=== PATIENT | female | born 1950 | race Caucasian/White ===

== ENCOUNTER 2020-09-06 12:32 | Outpatient (REF) | payer MEDICARE, OTHER, SELFPAY ==
--- NOTE | 2020-09-06 | MM_ITS ---
EXAMINATION: MM SCREENING DIGITAL BREAST TOMOSYNTHESIS, RIGHT CLINICAL INFORMATION: Screening. Asymptomatic. Status post left mastectomy COMPARISON: Mammography: May 09, 2019 and studies dating back to August 06, 2012 TECHNIQUE: Digital breast tomosynthesis is performed in both the craniocaudal and mediolateral oblique views along with computer-aided detection (CAD). Synthesized 2D images are generated from the tomosynthesis. Exaggerated craniocaudal views also performed. FINDINGS: There are scattered areas of fibroglandular density (ACR BI-RADS breast composition Category b). There are no significant masses, abnormal calcifications, or other abnormalities. Right-sided port catheter noted. MM/MM tomosynthesis screening RT IMPRESSION: There are no significant changes from prior study. ASSESSMENT: BI-RADS 1: Negative RECOMMENDATION: Routine annual mammography screening. This patient's information was entered into a reminder system with a target due date for their next mammogram.
== END 2020-09-06 12:33 | disposition home or self-care (01) ==
LOC: HO.MAMMO 12:32
PROVIDERS: PCP Internal Medicine; Visit Provider Internal Medicine
DX: Z12.31 Encounter for screening mammogram for malignant neoplasm of breast (principal); Z90.710 Acquired absence of both cervix and uterus
CPT/HCPCS: 77067

== ENCOUNTER 2021-07-01 16:37 | Outpatient (REF) | payer MEDICARE, OTHER, SELFPAY ==
[2021-07-01 17:03] LABS: IDNOW Serial# 08D9AD1C; Strep A Nucleic Acid Negative (Negative)
[2021-07-01 18:16] LABS: Influenza A PCR NEGATIVE (Negative); Influenza B PCR NEGATIVE (Negative); Resp Syncy Virus RNA Qual PCR NEGATIVE (Negative); SARS COV2 PCR INHOUSE NEGATIVE (Negative)
== END 2021-07-01 16:38 | disposition home or self-care (01) ==
LOC: HO.LNP 16:37
PROVIDERS: Visit Provider Internal Medicine
DX: R43.9 Unspecified disturbances of smell and taste (principal); J06.9 Acute upper respiratory infection, unspecified; Z20.822 Contact with and (suspected) exposure to COVID-19
CPT/HCPCS: 0241U; 87651

== ENCOUNTER 2021-09-09 13:20 | Outpatient (REF) | payer MEDICARE, SELFPAY ==
--- NOTE | ~2021-09-09 | MM_ITS ---
EXAMINATION: MM SCREENING DIGITAL BREAST TOMOSYNTHESIS, RIGHT CLINICAL INFORMATION: Left mastectomy for breast cancer, 1998. Due for yearly. COMPARISON: Mammography: 09/06/2020, 05/09/2019, 04/30/2018 TECHNIQUE: Digital breast tomosynthesis is performed in both the craniocaudal and mediolateral oblique views along with computer-aided detection (CAD). Synthesized 2D images are generated from the tomosynthesis. FINDINGS: There are scattered areas of fibroglandular density (ACR BI-RADS breast composition Category b). There is fine fibronodular parenchymal pattern. No interval dominant mass or architectural abnormality or abnormal calcifications. A port is seen overlying the lower right axilla. The skin contours are smooth. MM/MM tomosynthesis screening RT IMPRESSION: No significant changes from prior exam. ASSESSMENT: BI-RADS 2: Benign RECOMMENDATION: Routine annual mammography screening. This patient's information was entered into a reminder system with a target due date for their next mammogram.
== END 2021-09-09 13:21 | disposition home or self-care (01) ==
LOC: HO.MAMMO 13:20
PROVIDERS: Visit Provider Internal Medicine
DX: Z12.31 Encounter for screening mammogram for malignant neoplasm of breast (principal)
CPT/HCPCS: 77063; 77067

== ENCOUNTER 2022-09-15 14:31 | Outpatient (REF) | payer MEDICARE, SELFPAY ==
--- NOTE | ~2022-09-15 | MM_ITS ---
EXAMINATION: MM SCREENING DIGITAL BREAST TOMOSYNTHESIS, RIGHT CLINICAL INFORMATION: Remote left mastectomy, 1998. Due for yearly exam. COMPARISON: Mammography: 09/09/2021, 09/06/2020, 05/09/2019, 04/30/2018 TECHNIQUE: Digital breast tomosynthesis is performed in both the craniocaudal and mediolateral oblique views along with computer-aided detection (CAD). Synthesized 2D images are generated from the tomosynthesis. FINDINGS: There are scattered areas of fibroglandular density (ACR BI-RADS breast composition Category b). Fine fibronodular parenchymal pattern is similar to prior study. There is no developing density or interval architectural abnormality or abnormal calcifications. The skin contours are smooth. There is a port overlying the lower posterior right axilla on MLO view. There are no significant changes. MM/MM tomosynthesis screening RT IMPRESSION: No mammographic evidence of malignancy. ASSESSMENT: BI-RADS 2: Benign RECOMMENDATION: Routine annual mammography screening. This patient's information was entered into a reminder system with a target due date for their next mammogram.
== END 2022-09-15 14:32 | disposition home or self-care (01) ==
LOC: HO.MAMMO 14:31
PROVIDERS: PCP Internal Medicine; Visit Provider Internal Medicine
DX: Z12.31 Encounter for screening mammogram for malignant neoplasm of breast (principal)
CPT/HCPCS: 77063; 77067

== ENCOUNTER 2023-06-29 09:16 | Day surgery (SDC) | payer MEDICARE, SELFPAY ==
[2023-06-25 09:26] VITALS: BMI 33.1
--- NOTE | 2023-06-26 07:54 | MHC.SHP ---
Pre-Procedural Eval Section A Date of Service: 06/26/23 The patient is an INPATIENT: No Changes since office visit: No Cold of Flu in the past 2 weeks, No New Medical Problems, No Changes in Medication and No Patient answered all questions The History & Physical has been completed within 30 days and I have reviewed it.: Yes Section B Chief Complaint: Age-related nuclear cataract, left eye Allergies: Allergies Allergy/AdvReac Type Severity Reaction Status Date / Time Penicillins AdvReac stomach Verified 07/01/21 13:11 ache Plan Diagnosis/Plan: Unchanged I have reviewed the history and physical and performed a pertinent physical examination on my patient. No changes have occurred unless specified. Time Spent With Patient Time: Total time managing care of this patient today ____ minutes.
--- NOTE | 2023-06-26 10:56 | HO.ANESPROP2 ---
Documented by User: Arlene Schultz NP 06/26/23 10:57 HPI - Anesthesia Eval Consult details Narrative: 73yo F for Left Cataract Extraction IOL Insertion PCP cleared No previous cataract on record O2 dependant prn PMFSH Active Problems Active Problems: All Active Problems (Updated 06/25/23 @ 09:14 by Jagruti Hays RN) Upper respiratory tract infection (Acute) Past Medical History Medical History Hx of cancer of lung Back pain Anemia History of home oxygen therapy COPD (chronic obstructive pulmonary disease) Dyslipidemia Multinodular goiter Breast cancer Tobacco use Osteopenia Cervical high risk HPV (human papillomavirus) test positive Vitamin D deficiency Skin cancer Malignant neoplasm of lung CKD (chronic kidney disease) COVID-19 HTN (hypertension) Surgical History Surgical History History of lobectomy of lung History of removal of ovarian cyst History of bronchoscopy Hx of left mastectomy Social History Social History Housing Other:: mobile home Are you a primary laboratory animal care veterinarian to a significant other at home: No Do you presently have visiting nurse or other home services: Yes (visiting nurse) Patient Tobacco Use Status: Former Tobacco user Quit Date: 06/2019 Tobacco use type: Cigarette Years Smoked: 54 Smoked in Last 30 Days: No Use of substances other than those prescribed or required for medical reasons: Yes Substance Use Type Other:: edibles at bedtime Substance Use Frequency: Daily Have you been hit, kicked, punched, or otherwise hurt by someone within the past year? If so, by whom?: No Are you DNR?: No Advance Directives: No Advance Directives Information Provided: Yes Advance Directives on File: No Recently lost weight without trying: No Eating poorly because of decreased appetite: No Nutrition Risks: No Nutritional Risk Patient : No : No Poor oral hygiene: Yes (full dentures upper and lower) Meds Allergies Allergy/AdvReac Type Severity Reaction Status Date / Time Penicillins AdvReac stomach Verified 07/01/21 13:11 ache Home Medications Medication Instructions Recorded Confirmed Last Taken Type gabapentin 300 mg capsule 300 mg PO DAILY 07/01/21 06/25/23 Unknown History atorvastatin 40 mg tablet 40 mg PO BEDTIME 06/24/23 06/25/23 Unknown History cetirizine 10 mg tablet 10 mg PO DAILY 06/24/23 06/25/23 06/29/23 History cholecalciferol (vitamin D3) 25 25 mcg PO DAILY 06/24/23 06/25/23 Unknown History mcg (1,000 unit) tablet cyanocobalamin (vitamin B-12) 50 50 mcg PO DAILY 06/24/23 06/25/23 Unknown History mcg tablet (Vitamin B-12) furosemide 20 mg tablet 20 mg PO QAM 06/24/23 06/25/23 Unknown History ipratropium 20 mcg-albuterol 100 1 puff inhalation TID 06/24/23 06/25/23 06/29/23 09:58 History mcg/actuation mist for inhalation (Combivent Respimat) melatonin 5 mg capsule 5 mg PO BEDTIME 06/24/23 06/25/23 Unknown History metoprolol tartrate 50 mg tablet 50 mg PO BID 06/24/23 06/25/23 06/29/23 History omeprazole 20 mg capsule,delayed 20 mg PO BEDTIME 06/24/23 06/25/23 Unknown History release gabapentin 300 mg capsule 600 mg PO BEDTIME 06/25/23 06/25/23 06/29/23 History Exam Exam Date and Time: June 26, 2023 1056 Height,Weight and Vital Signs: Height 5 ft 1 in Weight 79.379 kg Assessment and Plan Assessment Anesthesia Assessment: Chart Reviewed Documented by User: Avtar Bryan MD 06/29/23 10:53 [facility] Past Medical History Medical History Hx of cancer of lung Back pain Anemia History of home oxygen therapy COPD (chronic obstructive pulmonary disease) Dyslipidemia Multinodular goiter Breast cancer Tobacco use Osteopenia Cervical high risk HPV (human papillomavirus) test positive Vitamin D deficiency Skin cancer Malignant neoplasm of lung CKD (chronic kidney disease) COVID-19 HTN (hypertension) Family History Family history of problems with anesthesia: No Surgical History Surgical History History of lobectomy of lung History of removal of ovarian cyst History of bronchoscopy Hx of left mastectomy History of Problems with Anesthesia: No Social History Social History Housing Other:: mobile home Are you a primary laboratory animal care veterinarian to a significant other at home: No Do you presently have visiting nurse or other home services: Yes (visiting nurse) Patient Tobacco Use Status: Former Tobacco user Quit Date: 06/2019 Tobacco use type: Cigarette Years Smoked: 54 Smoked in Last 30 Days: No Use of substances other than those prescribed or required for medical reasons: Yes Substance Use Type Other:: edibles at bedtime Substance Use Frequency: Daily Have you been hit, kicked, punched, or otherwise hurt by someone within the past year? If so, by whom?: No Are you DNR?: No Advance Directives: No Advance Directives Information Provided: Yes Advance Directives on File: No Recently lost weight without trying: No Eating poorly because of decreased appetite: No Nutrition Risks: No Nutritional Risk Patient : No : No Poor oral hygiene: Yes (full dentures upper and lower) Meds Allergies Allergy/AdvReac Type Severity Reaction Status Date / Time Penicillins AdvReac stomach Verified 07/01/21 13:11 ache Home Medications Medication Instructions Recorded Confirmed Last Taken Type gabapentin 300 mg capsule 300 mg PO DAILY 07/01/21 06/25/23 Unknown History atorvastatin 40 mg tablet 40 mg PO BEDTIME 06/24/23 06/25/23 Unknown History cetirizine 10 mg tablet 10 mg PO DAILY 06/24/23 06/25/23 06/29/23 History cholecalciferol (vitamin D3) 25 25 mcg PO DAILY 06/24/23 06/25/23 Unknown History mcg (1,000 unit) tablet cyanocobalamin (vitamin B-12) 50 50 mcg PO DAILY 06/24/23 06/25/23 Unknown History mcg tablet (Vitamin B-12) furosemide 20 mg tablet 20 mg PO QAM 06/24/23 06/25/23 Unknown History ipratropium 20 mcg-albuterol 100 1 puff inhalation TID 06/24/23 06/25/2323 09:58 History mcg/actuation mist for inhalation (Combivent Respimat) melatonin 5 mg capsule 5 mg PO BEDTIME 06/24/23 06/25/23 Unknown History metoprolol tartrate 50 mg tablet 50 mg PO BID 06/24/23 06/25/23 06/29/23 History omeprazole 20 mg capsule,delayed 20 mg PO BEDTIME 06/24/23 06/25/23 Unknown History release gabapentin 300 mg capsule 600 mg PO BEDTIME 06/25/23 06/25/23 06/29/23 History Exam Airway Mallampati Class: II TM Dist: >3cm Neck ROM: Full Denture: Upper and Lower Loose/Missing/Broken Teeth: Yes Heart: [id number] Lungs: cta b/l Assessment and Plan Assessment Anesthesia Assessment: Anesthesia Plan Discussed Final Anesthetic Review Family History of Problems with Anesthesia: No History of Problems with Anesthesia: No NPO: Yes ASA Class: III Final Preanesthetic Review: No Changes in Pt Med Stat, Meds/Allgs Chart Reviewed, Consent Obtained/Reviewed and Anes Risks/Benef Reviewed Patient Risk: Intermediate Procedure Risk: Intermediate Assessment/Block/Sedation in SS: Assess/Block/Sedation-SS Anesthetic Plan Anesthetic Plan: MAC: and Agree w/ Assess. and Plan Disposition: Standard PACU
--- NOTE | 2023-06-29 09:54 | PC.NURSE ---
patient fell at home on Thursday while cleaning bathroom hitting her left side. went to [facility] and broke a rib per an xray. denies hitting head. seen by md kirsten livingston to proceed.
[2023-06-29 10:12] VITALS: BP 139/70; PULSE 64; RESP 18; TEMP 36.6; O2SAT 95
[2023-06-29] MEDS: Tetracaine HCl/PF 0.5% Oph Sol 4 ML DROPS 1 DROP EYE-LEFT (10:17)
[2023-06-29] MEDS: Lactated Ringers 500 ML 50 ML IV (10:17)
[2023-06-29] MEDS: Cyclopentolate 1 % Ophth Sol 2 ML DRPBTL 1 DROP EYE-LEFT ×3 (10:18→10:24)
[2023-06-29] MEDS: Tropicamide 1 % Ophth Sol 3 ML BTL 1 DROP EYE-LEFT ×3 (10:19→10:25)
[2023-06-29] MEDS: Ketorolac Tromethamine 0.5% Op 5 ML DROPS 1 DROP EYE-LEFT ×3 (10:20→10:25)
[2023-06-29] MEDS: Phenylephrine HCL 2.5% Oph SoL 2 ML BOTTLE 1 DROP EYE-LEFT ×3 (10:21→10:26)
--- NOTE | 2023-06-29 11:04 | HO.PNOPHT ---
Ophthalmology Procedure Procedure Date of Service: 06/29/23 Ophthalmology Viscoelastic: Healaria Shortt Dual Pack Pro Ophthalmology Lenses: TECROGERIO [id number] (23) Procedure Notes: PREOPERATIVE DIAGNOSIS: Decreased visual acuity left eye secondary to cataract POSTOPERATIVE DIAGNOSIS: Same PROCEDURE: Left cataract extraction with intraocular lens insertion SURGEON: Ranjit Suazo M.D. ANESTHESIA: Topical/MAC ESTIMATED BLOOD LOSS: None COMPLICATIONS: None After obtaining informed consent, the patient was brought to the operation room suite and placed in the supine position. After adequate sedation per anesthesia, topical drops of Tetracaine were given to the left eye. The eye was then prepped and draped in the usual sterile fashion. The operating room microscope was then positioned over the operative eye and a lid speculum placed. A paracentesis was created. Viscoelastic was then instilled into the anterior chamber. A three plane incision was then created temporally, utilizing a 2.85 mm keratome. Capsulotomy forceps were then utilized to create a circular tear capsulotomy. Hydrodissection and hydrodelineation were carried out until adequate mobilization of the nucleus occurred. Phacoemulsification was then utilized to remove the dense central nucleus followed by removal of the cortical material utilizing the automated aspiration irrigation unit. Viscoat elastic was instilled into the posterior capsular bag followed by placement of a posterior chamber intraocular lens without difficulty. The residual Viscoat elastic was then removed utilizing the automated IA machine. The wound was check and found to be watertight. The patient tolerated the procedure well and the lid speculum was removed. Intracameral injection of Vigamox 0.1 mL followed by a subtenon injection of Kenalog-40 0.2 mL were administered. The patient will be seen in the a.m.
[2023-06-29 11:28] VITALS: BP 132/66; PULSE 73; RESP 16; TEMP 36.6; O2SAT 96
== END 2023-06-29 12:24 | disposition home or self-care (01) ==
PROVIDERS: PCP Internal Medicine; Visit Provider Ophthalmology
PROC: (CPT 66985; principal; 2023-06-29 11:20)
DX: H25.12 Age-related nuclear cataract, left eye (principal); H54.7 Unspecified visual loss; I12.9 Hypertensive chronic kidney disease with stage 1 through stage 4 chronic kidney disease, or unspecified chronic kidney disease; N18.9 Chronic kidney disease, unspecified; D64.9 Anemia, unspecified; E78.5 Hyperlipidemia, unspecified; Z85.3 Personal history of malignant neoplasm of breast; Z85.118 Personal history of other malignant neoplasm of bronchus and lung; Z85.828 Personal history of other malignant neoplasm of skin; Z87.891 Personal history of nicotine dependence; Z79.899 Other long term (current) drug therapy
CPT/HCPCS: 66984; J2250; J3010; J3301; V2632

== ENCOUNTER 2023-07-13 08:30 | Day surgery (SDC) | payer MEDICARE, SELFPAY ==
[2023-06-25 09:49] VITALS: BMI 33.1
--- NOTE | 2023-07-09 13:46 | HO.ANESPROP2 ---
Documented by User: Arlene Schultz NP 07/09/23 13:47 HPI - Anesthesia Eval Consult details Narrative: 73yo F for Right Cataract Extraction IOL Insertion PCP cleared Left eye 06/29/23 with MAC: Fent 50, Midaz 0.5 PMFSH Active Problems Active Problems: All Active Problems (Updated 06/25/23 @ 09:14 by Jagruti Hays RN) Upper respiratory tract infection (Acute) Past Medical History Medical History Hx of cancer of lung Back pain Anemia History of home oxygen therapy COPD (chronic obstructive pulmonary disease) Dyslipidemia Multinodular goiter Breast cancer Tobacco use Osteopenia Cervical high risk HPV (human papillomavirus) test positive Vitamin D deficiency Skin cancer Malignant neoplasm of lung CKD (chronic kidney disease) COVID-19 HTN (hypertension) Family History Family history of problems with anesthesia: No Surgical History Surgical History History of lobectomy of lung History of removal of ovarian cyst History of bronchoscopy Hx of left mastectomy History of Problems with Anesthesia: No Social History Social History Housing Other:: mobile home Are you a primary critical care unit nurse to a significant other at home: No Do you presently have visiting nurse or other home services: Yes (visiting nurse) Patient Tobacco Use Status: Former Tobacco user Quit Date: 06/2019 Tobacco use type: Cigarette Years Smoked: 54 Use of substances other than those prescribed or required for medical reasons: Yes Substance Use Type Other:: edibles Substance Use Frequency: Daily Have you been hit, kicked, punched, or otherwise hurt by someone within the past year? If so, by whom?: No Are you DNR?: No Advance Directives: No Advance Directives Information Provided: Yes Advance Directives on File: No Recently lost weight without trying: No Eating poorly because of decreased appetite: No Nutrition Risks: No Nutritional Risk Patient : No : No Poor oral hygiene: Yes (full dentures upper and lower) Meds Allergies Allergy/AdvReac Type Severity Reaction Status Date / Time Penicillins AdvReac stomach Verified 07/01/21 13:11 ache Home Medications Medication Instructions Recorded Confirmed Last Taken Type gabapentin 300 mg capsule 300 mg PO DAILY 07/01/21 06/25/23 Unknown History atorvastatin 40 mg tablet 40 mg PO BEDTIME 06/24/23 06/25/23 Unknown History cetirizine 10 mg tablet 10 mg PO DAILY 06/24/23 06/25/23 06/29/23 History cholecalciferol (vitamin D3) 25 25 mcg PO DAILY 06/24/23 06/25/23 Unknown History mcg (1,000 unit) tablet cyanocobalamin (vitamin B-12) 50 50 mcg PO DAILY 06/24/23 06/25/23 Unknown History mcg tablet (Vitamin B-12) furosemide 20 mg tablet 20 mg PO QAM 06/24/23 06/25/23 Unknown History ipratropium 20 mcg-albuterol 100 1 puff inhalation TID 06/24/23 06/25/23 06/29/23 09:58 History mcg/actuation mist for inhalation (Combivent Respimat) melatonin 5 mg capsule 5 mg PO BEDTIME 06/24/23 06/25/23 Unknown History metoprolol tartrate 50 mg tablet 50 mg PO BID 06/24/23 06/25/23 06/29/23 History omeprazole 20 mg capsule,delayed 20 mg PO BEDTIME 06/24/23 06/25/23 Unknown History release gabapentin 300 mg capsule 600 mg PO BEDTIME 06/25/23 06/25/23 06/29/23 History Exam Exam Date and Time: July 09, 2023 1346 Height,Weight and Vital Signs: Height 5 ft 1 in Weight 79.379 kg Assessment and Plan Assessment Anesthesia Assessment: Chart Reviewed Final Anesthetic Review Family History of Problems with Anesthesia: No History of Problems with Anesthesia: No Documented by User: Karla Mcgrath MD 07/13/23 09:41 [facility] Past Medical History Medical History Hx of cancer of lung Back pain Anemia History of home oxygen therapy COPD (chronic obstructive pulmonary disease) Dyslipidemia Multinodular goiter Breast cancer Tobacco use Osteopenia Cervical high risk HPV (human papillomavirus) test positive Vitamin D deficiency Skin cancer Malignant neoplasm of lung CKD (chronic kidney disease) COVID-19 HTN (hypertension) Surgical History Surgical History History of lobectomy of lung History of removal of ovarian cyst History of bronchoscopy Hx of left mastectomy Social History Social History Housing Other:: mobile home Are you a primary critical care unit nurse to a significant other at home: No Do you presently have visiting nurse or other home services: Yes (visiting nurse) Patient Tobacco Use Status: Former Tobacco user Quit Date: 06/2019 Tobacco use type: Cigarette Years Smoked: 54 Use of substances other than those prescribed or required for medical reasons: Yes Substance Use Type Other:: edibles Substance Use Frequency: Daily Have you been hit, kicked, punched, or otherwise hurt by someone within the past year? If so, by whom?: No Are you DNR?: No Advance Directives: No Advance Directives Information Provided: Yes Advance Directives on File: No Recently lost weight without trying: No Eating poorly because of decreased appetite: No Nutrition Risks: No Nutritional Risk Patient : No : No Poor oral hygiene: Yes (full dentures upper and lower) Meds Allergies Allergy/AdvReac Type Severity Reaction Status Date / Time Penicillins AdvReac stomach Verified 07/01/21 13:11 ache Home Medications Medication Instructions Recorded Confirmed Last Taken Type gabapentin 300 mg capsule 300 mg PO DAILY 07/01/21 06/25/23 Unknown History atorvastatin 40 mg tablet 40 mg PO BEDTIME 06/24/23 06/25/23 Unknown History cetirizine 10 mg tablet 10 mg PO DAILY 06/24/23 06/25/23 06/29/23 History cholecalciferol (vitamin D3) 25 25 mcg PO DAILY 06/24/23 06/25/23 Unknown History mcg (1,000 unit) tablet cyanocobalamin (vitamin B-12) 50 50 mcg PO DAILY 06/24/23 06/25/23 Unknown History mcg tablet (Vitamin B-12) furosemide 20 mg tablet 20 mg PO QAM 06/24/23 06/25/23 Unknown History ipratropium 20 mcg-albuterol 100 1 puff inhalation TID 06/24/23 06/25/23 06/29/23 09:58 History mcg/actuation mist for inhalation (Combivent Respimat) melatonin 5 mg capsule 5 mg PO BEDTIME 06/24/23 06/25/23 Unknown History metoprolol tartrate 50 mg tablet 50 mg PO BID 06/24/23 06/25/23 06/29/23 History omeprazole 20 mg capsule,delayed 20 mg PO BEDTIME 06/24/23 06/25/23 Unknown History release gabapentin 300 mg capsule 600 mg PO BEDTIME 06/25/23 06/25/23 06/29/23 History Exam Airway Mallampati Class: III TM Dist: >3cm Neck ROM: Full Denture: Upper and Lower Lungs: clear, no wheezing Assessment and Plan Assessment Anesthesia Assessment: Anesthesia Plan Discussed Final Anesthetic Review NPO: Yes ASA Class: IV Final Preanesthetic Review: No Changes in Pt Med Stat, Meds/Allgs Chart Reviewed, Consent Obtained/Reviewed and Anes Risks/Benef Reviewed Patient Risk: High Procedure Risk: Low Anesthetic Plan Anesthetic Plan: MAC: Disposition: Standard PACU
--- NOTE | 2023-07-10 07:46 | MHC.SHP ---
Pre-Procedural Eval Section A Date of Service: 07/10/23 The patient is an INPATIENT: No Changes since office visit: No Cold of Flu in the past 2 weeks, No New Medical Problems, No Changes in Medication and No Patient answered all questions The History & Physical has been completed within 30 days and I have reviewed it.: Yes Section B Chief Complaint: Age-related nuclear cataract, right eye Allergies: Allergies Allergy/AdvReac Type Severity Reaction Status Date / Time Penicillins AdvReac stomach Verified 07/01/21 13:11 ache Plan Diagnosis/Plan: Unchanged I have reviewed the history and physical and performed a pertinent physical examination on my patient. No changes have occurred unless specified. Time Spent With Patient Time: Total time managing care of this patient today ____ minutes.
[2023-07-13 09:34] VITALS: BMI 33.1
[2023-07-13 09:35] VITALS: BP 145/68; PULSE 66; RESP 18; TEMP 36.2; O2SAT 96
[2023-07-13] MEDS: Lactated Ringers 500 ML 50 ML IV (09:49)
[2023-07-13] MEDS: Tetracaine HCl/PF 0.5% Oph Sol 4 ML DROPS 1 DROP EYE-RIGHT (09:49)
[2023-07-13] MEDS: Tropicamide 1 % Ophth Sol 3 ML BTL 1 DROP EYE-RIGHT ×3 (09:49→09:56)
[2023-07-13] MEDS: Ketorolac Tromethamine 0.5% Op 5 ML DROPS 1 DROP EYE-RIGHT ×3 (09:49→09:56)
[2023-07-13] MEDS: Phenylephrine HCL 2.5% Oph SoL 2 ML BOTTLE 1 DROP EYE-RIGHT ×3 (09:49→09:55)
[2023-07-13] MEDS: Cyclopentolate 1 % Ophth Sol 2 ML DRPBTL 1 DROP EYE-RIGHT ×3 (09:50→09:56)
--- NOTE | 2023-07-13 10:30 | HO.PNOPHT ---
Ophthalmology Procedure Procedure Date of Service: 07/13/23 Ophthalmology Viscoelastic: Reinier Shortt Dual Pack Pro Ophthalmology Lenses: TECROGERIO [id number] (23) Procedure Notes: PREOPERATIVE DIAGNOSIS: Decreased visual acuity right eye secondary to cataract POSTOPERATIVE DIAGNOSIS: Same PROCEDURE: Right cataract extraction with intraocular lens insertion SURGEON: Ranjit Suazo M.D. ANESTHESIA: Topical/MAC ESTIMATED BLOOD LOSS: None COMPLICATIONS: None After obtaining informed consent, the patient was brought to the operating room suite and placed in the supine position. After adequate sedation per anesthesia, topical drops of Tetracaine were given to the right eye. The eye was then prepped and draped in the usual sterile fashion. The operating room microscope was then positioned over the operative eye and a lid speculum placed. A paracentesis was created. Viscoelastic was then instilled into the anterior chamber. A three plane incision was then created temporally, utilizing a 2.85 mm keratome. Capsulotomy forceps were then utilized to create a circular tear capsulotomy. Hydrodissection and hydrodelineation were carried out until adequate mobilization of the nucleus occurred. Phacoemulsification was then utilized to remove the dense central nucleus followed by removal of the cortical material utilizing the automated aspiration irrigation unit. Viscoelastic was instilled into the posterior capsular bag followed by placement of a posterior chamber intraocular lens without difficulty. The residual Viscoelastic was then removed utilizing the automated IA machine. The wound was checked and found to be watertight. The patient tolerated the procedure well and the lid speculum was removed. Intracameral injection of Vigamox 0.1 mL followed by a subtenon injection of Kenalog-40 0.2 mL were administered. The patient will be seen in the a.m.
[2023-07-13 11:12] VITALS: BP 163/87; PULSE 67; RESP 16; TEMP 36.2; O2SAT 98
== END 2023-07-13 11:14 | disposition home or self-care (01) ==
PROVIDERS: PCP Internal Medicine; Visit Provider Ophthalmology
PROC: (CPT 66985; principal; 2023-07-13 10:50)
DX: H25.11 Age-related nuclear cataract, right eye (principal); H54.7 Unspecified visual loss; E03.9 Hypothyroidism, unspecified; I13.0 Hypertensive heart and chronic kidney disease with heart failure and stage 1 through stage 4 chronic kidney disease, or unspecified chronic kidney disease; I50.9 Heart failure, unspecified; N18.9 Chronic kidney disease, unspecified; D64.9 Anemia, unspecified; E78.5 Hyperlipidemia, unspecified; M81.0 Age-related osteoporosis without current pathological fracture; Z85.3 Personal history of malignant neoplasm of breast; Z85.118 Personal history of other malignant neoplasm of bronchus and lung; Z90.2 Acquired absence of lung [part of]; Z99.81 Dependence on supplemental oxygen; Z90.12 Acquired absence of left breast and nipple; Z92.21 Personal history of antineoplastic chemotherapy; Z79.51 Long term (current) use of inhaled steroids; Z79.899 Other long term (current) drug therapy; Z88.0 Allergy status to penicillin; Z87.891 Personal history of nicotine dependence
CPT/HCPCS: 66984; J2250; J3301; V2632

== ENCOUNTER → 2023-11-26 15:15 | Outpatient (BNV) | payer MEDICARE, SELFPAY | PROVIDERS: PCP Internal Medicine; Visit Provider Radiology Diagnostic Radiology | DX: Z12.31 Encounter for screening mammogram for malignant neoplasm of breast (principal) | CPT/HCPCS: 77063; 77067 ==

== ENCOUNTER 2023-11-26 15:16 | Outpatient (REF) | payer MEDICARE, SELFPAY ==
--- NOTE | ~2023-11-26 | MM_ITS ---
EXAMINATION: MM SCREENING DIGITAL BREAST TOMOSYNTHESIS, RIGHT BREAST CLINICAL INFORMATION: Screening. Asymptomatic. the patient is status post left mastectomy. COMPARISON: Mammography: This study is compared with prior exams dating back to 2018. TECHNIQUE: Digital breast tomosynthesis is performed in both the craniocaudal and mediolateral oblique views along with computer-aided detection (CAD). Synthesized 2D images are generated from the tomosynthesis. FINDINGS: There are scattered areas of fibroglandular density (ACR BI-RADS breast composition Category b). There are no significant masses, abnormal calcifications, or other abnormalities. MM/MM tomosynthesis screening RT IMPRESSION: No mammographic evidence of malignancy. ASSESSMENT: BI-RADS BI-RADS 1 - Negative RECOMMENDATION: Routine annual mammography screening. 1 year F/U This examination should not preclude the clinical evaluation of a suspicious palpable abnormality. This patient's information was entered into a reminder system with a target due date for their next mammogram.
== END 2023-11-26 15:17 | disposition home or self-care (01) ==
LOC: HO.MAMMO 15:16
PROVIDERS: PCP Internal Medicine; Visit Provider Internal Medicine
DX: Z12.31 Encounter for screening mammogram for malignant neoplasm of breast (principal)
CPT/HCPCS: 77063; 77067